=== PATIENT | male | born 1990 | race Caucasian/White ===

== ENCOUNTER 2024-01-31 14:07 | Emergency (ER) | payer OTHER ==
[~2024-01-31] VITALS: Ht 185.4 cm; Wt 89.8 kg
[2024-01-31 14:17] VITALS: BP 121/76
[2024-01-31] MEDS ORDERED: ASPIRIN 81 MG/TAB PO ONE (14:30)
[2024-01-31 14:39] LABS: BASO% 0.3 % (0-3); EOS% 0.2 % (0-8); HEMATOCRIT 41.8 % (39.0-50.0); HEMOGLOBIN 13.8 g/dl (14.0-18.0); IMMATURE GRANULOCYTES 0.1 % (0.0-5.0); LYMPH% 9.3 % (15-41); MEAN CELL VOLUME 94.6 fL CALC (80.0-100.0); MEAN CORPUSCULAR HGB 31.2 pG CALC (26.0-32.0); MONO% 8.5 % (2-13); NEUT# 7.62 thou/uL (1.82-7.42); NEUT% 81.6 % (42-76); RED BLOOD COUNT 4.42 mill/uL (4.70-6.10); RED CELL DISTRI WIDTH 12.3 % (11.5-15.5)
[2024-01-31 14:57] LABS: ALBUMIN 4.8 g/dL (3.2-5.0); ALKALINE PHOSPHATASE 59 u/l (38-126); ANION GAP 11 (6-22 (CALC)); BILIRUBIN, TOTAL 0.8 mg/dL (0.2-1.3); BUN 10 mg/dL (9-20); BUN/CREATININE RATIO 11 (12-20 (CALC)); CARBON DIOXIDE 24 mmol/l (22-30); CHLORIDE 102 mmol/l (95-108); CREATININE 0.9 mg/dL (0.7-1.3); ESTIMATED GFR 116 ML/MIN (>=90 (CALC)); SGOT/AST 40 u/l (17-59); SODIUM 134 mmol/l (137-146)
[2024-01-31 19:06] VITALS: BP 121/76
== END 2024-01-31 19:11 | disposition home or self-care (01) | DRG 313 ==
LOC: ED 14:07
PROVIDERS: Family Medicine
DX: R07.9 Chest pain, unspecified (principal)